=== PATIENT | female | born 1980 | race American Indian/Alaskan Native ===

== ENCOUNTER 2020-04-18 09:50 | Observation (INO) | payer MEDICAID ==
--- NOTE | 2020-04-10 11:15 | History and Physical Report ---
History of Present Illness Date of examination: 04/10/20 History of present illness: 40 yo has menorrhagia, anemia and fibroid uterus. U/S showed two 4+ cm myomas. She had VB most of the summer which even required PRBCs at one point. BC is not helping. Past History Past Medical History: other (anemia) Past Surgical History: other (nephrectomy (right)- she donated it to her ) Social history: no significant social history Medications and Allergies Active Meds: see EMR charting Review of Systems All systems: negative (except HPI) - Vital Signs Vital signs: see EMR charting. - Physical Exam Cardiovascular: Regular rate, No murmurs Lungs: Positive: Clear to auscultation Genitourinary (Female): Positive: normal external genitalia Vagina: Positive: normal moisture Cervix: Negative: lesion, discharge Uterus: Positive: enlarged (bulky but still well under mike umbilicus.) Adnexa: both: normal Results All other labs normal. Assessment and Plan - Patient Problems (1) Menorrhagia Status: Acute (2) Anemia Status: Acute Qualifiers: Iron deficiency anemia type: chronic blood loss Plan to address problem: CBC repeated in the office 04/10 (3) Fibroids Status: Acute Plan to address problem: Tx options d/w pt and she opts to proceed with RAH/ and B/L salpingectomy. PT fully counseled.
--- NOTE | 2020-04-16 14:26 | Anesthesia Consultation ---
Anesthesia Consult and Med Hx Date of service: 04/18/20 - Airway Anesthetic Teeth Evaluation: Good, Partials (upper incisors) ROM Head & Neck: Adequate Mental/Hyoid Distance: Adequate Mallampati Class: Class III Intubation Access Assessment: Possibly Difficult - Pulmonary Exam CTA: Yes - Cardiac Exam Cardiac Exam: RRR - Pre-Operative Health Status ASA Pre-Surgery Classification: ASA1 Proposed Anesthetic Plan: General Nerve Block: TAP - Pulmonary Hx Smoking: No Hx Respiratory Symptoms: No - Cardiovascular System Hx Hypertension: No Hx Heart Attack/AMI: No - Central Nervous System CVA: No - Gastrointestinal Hx Gastroesophageal Reflux Disease: No - Endocrine Hx Renal Disease: No (s/p donor nephrectomy; remaining kidney functioning well per patient) Hx Liver Disease: No Hx Insulin Dependent Diabetes: No Hx Non-Insulin Dependent Diabetes: No Hx Thyroid Disease: No - Hematic Hx Anemia: Yes - Other Systems Hx Obesity: No - Additional Comments Anesthesia Medical History Comments: No hx anesthetic complications.
[2020-04-16 14:45] LABS: Basophils % (Auto) 0.7 % (0.0-1.8); Eosinophils # (Auto) 0.3 K/mm3 (0.0-0.4); Eosinophils % (Auto) 4.3 % (0.0-4.3); Hemoglobin 7.2 gm/dl (10.1-14.3); Lymphocytes # (Auto) 2.4 K/mm3 (1.2-5.4); Lymphocytes % (Auto) 38.6 % (13.4-35.0); Mean Corpuscular HGB Conc 30 % (30-34); Monocytes # (Auto) 0.6 K/mm3 (0.0-0.8); Monocytes % (Auto) 9.2 % (0.0-7.3); Platelet Count 483 K/mm3 (140-440); Red Blood Count 3.68 M/mm3 (3.65-5.03)
[2020-04-16 14:50] LABS: Mean Corpuscular Volume 65 fl (79-97)
[~2020-04-18 09:50] MED LIST: GABAPENTIN 300 MG CAP PO NR; MIDAZOLAM 2 MG/2 ML INJ IV NR; SODIUM CHLORIDE 0.9% 500 ML 500 ML IV ONE; fentaNYL 100 MCG/2 ML INJ IV PRN
[2020-04-18] MEDS: ACETAMINOPHEN 500 MG TAB PO SCH ×2 (10:20→20:37)
[2020-04-18] MEDS ORDERED: BUPIVACAINE-EPINEPHRINE/PF 0.5%-1:200,000 (10 ML) VIAL INFILTRATI ONE (10:34)
[2020-04-18] MEDS ORDERED: dexAMETHasone 4 MG/ML VIAL ONE (10:34)
[2020-04-18] MEDS ORDERED: SODIUM CHLORIDE P/F VIAL 10 ML 30 ML ONE (10:34)
[2020-04-18] MEDS: LACTATED RINGERS 1,000 ML IV SCH ×2 (10:40→18:14)
[2020-04-18] MEDS ORDERED: PHENYLEPHRINE/NS 1,000 MCG/10 ML SYRINGE (OR USE) IV ONE (10:57)
[2020-04-18] MEDS ORDERED: dexAMETHasone 20 MG/5 ML VIAL ONE (10:57)
[2020-04-18] MEDS ORDERED: ONDANSETRON 4 MG/2 ML INJ ONE (10:57)
[2020-04-18] MEDS ORDERED: NEOSTIGMINE 10MG/10 ML INJ MDV ONE (10:57)
[2020-04-18] MEDS ORDERED: LIDOCAINE MPF (2%) 20 MG/1 ML VIAL 5 ML ONE (10:57)
[2020-04-18] MEDS ORDERED: ROCURONIUM 50 MG/5 ML INJ IV ONE (10:57)
[2020-04-18] MEDS ORDERED: SUCCINYLCHOLINE CHLORIDE 200 MG/10 ML INJ MDV ONE (10:57)
[2020-04-18] MEDS ORDERED: GLYCOPYRROLATE 0.4 MG/2 ML INJ ONE (10:57)
[2020-04-18] MEDS ORDERED: propofoL 200 MG/20 ML VIAL IV ONE (10:58)
[2020-04-18] MEDS ORDERED: fentaNYL 100 MCG/2 ML INJ ONE (10:58)
--- NOTE | 2020-04-18 12:34 | Anesthesia Day of Surgery ---
Anesthesia Day of Surgery - Day of Surgery Patient Examined: Yes Patient H&P Reviewed: Yes Patient is NPO: Yes
--- NOTE | 2020-04-18 12:37 | Progress Note ---
Regional Anesthesia Block - Regional Anesthesia Block Start Time: 12:10 Stop Time: 12:25 Performed By:: BETO MORSE Procedure: Avery Tap Block with Ultrasound Pt Id, consent, time out; performed. Pt on monitor, VSS stable, sedation given per pre-op RN. Sterile prep and drape. Left side Landmarks Identified with ultrasound. 3cc 1% lido skin wheel. Needle advance in plane, 15cc .25% bupivacaine with 15 m ns injected intimately with negatives aspiration. Right side Landmarks Identified with ultrasound. 3cc 1% lido skin wheel. Needle advance in plane, 15cc .25% bupivacaine with 15 m ns injected intimately with negatives aspiration Pt tolerated procedure will, VSS stable.
[2020-04-18] MEDS ORDERED: HYDROmorphone 1 MG/1 ML INJ IV PRN (13:35)
[2020-04-18] MEDS ORDERED: HYDROmorphone 1 MG/1 ML INJ ONE ×2 (13:48→14:23)
[2020-04-18] MEDS ORDERED: SODIUM CHLORIDE 0.9% IRRIG SOLN 2000 ML IR ONE (14:25)
[2020-04-18] MEDS ORDERED: SODIUM CHLORIDE 0.9% IRR 1,500 ML BOTTLE IR ONE (14:27)
--- NOTE | 2020-04-18 16:01 | Post Operative Note ---
Date of procedure: 04/18/20 Pre-op diagnosis: Menorrhagia, fibroid uterus, anemia Post-op diagnosis: same Findings: Bulky fibroid uterus noted. Both tubes and ovaries were within normal limits. The rest of the abdominal pelvic survey was also within normal limits. Procedure: Indication: This is a 40-year-old -0-1-3 with a history of menorrhagia, fibroid uterus, anemia. Her preoperative hemoglobin was 7.3 and she received 1 unit of packed red cells in the preop holding area. Procedure: Patient was taken to the operating room and prepped and draped in the usual fashion. Attention was first turned vaginally for placement of the V care cup uterine manipulator. This was done in the usual fashion including anchoring stitches at 12:00 and 6:00 of the cervical stroma with 0 Vicryl. The large Vcare cup was chosen and the manipulator was placed successfully and without difficulty. Attention was now turned abdominally. In the left upper quadrant about 2 fingerbreadths inferior to the costal margin in the midclavicular line, an 8 mm incision was made. The 8 mm trocar was successfully placed and the placement was confirmed with the camera. Attention was now turned to the placement of the 3 robotic trocars. The 2 lower quadrant ones were about 2 cm superior and medial to the ASIS on each side. These were 8 mm ports. They were placed under direct visualization with without difficulty. The 12 mm umbilical trocar site was also placed under direct visualization successfully and without difficulty. At this point the patient was placed in steep Trendelenburg. The robot was docked to the trochars. At this point I broke scrub and proceeded to the da Mehdi console. First the pelvis was assessed and findings noted above. Good ureteral peristalsis was noted on the left both at the beginning of the case and at the end of the case. Patient with a history of a right-sided nephrectomy. Attention was first turned to the left adnexa where the fallopian tube was resected from its attachments using the robotic vessel sealer. This dissection was carried to the round ligament. The ovarian ligament was also clamped cauterized and resected with the vessel sealer. The round ligament was also clamped cauterized and cut with the vessel sealer. Good hemostasis was noted. This was then done in the exact same fashion on the right side with equal success and good hemostasis. At this point attention was turned the bladder fla p which was created using EndoShears. Good hemostasis noted. The anterior colpotomy ring indentation was then identified from the V care cup. Colpotomy incision was made until the green Vcare cup was visualized. This incision was then extended bilaterally. Attention was then turned posteriorly where the posterior colpotomy ring indentation was identified and the colpotomy incision was made. The colpotomy incision posteriorly was then extended bilaterally. The posterior peritoneal flap was created at this point bilaterally. Good hemostasis noted. At this point attention was turned to the the uterine vasculature which was clamped cauterized and cut using the vessel sealer on both sides. After this was completed the colpotomy was completed at the 3:00 and 9:00 positions. At this point the colpotomy was completed 360 degrees. At this point the uterus and tubes were successfully removed vaginally without difficulty. Attention was turned to closure of the vaginal cuff which was done using 0 V-Loc in a running fashion. Vaginal cuff was closed successfully and without difficulty. At this point the pelvis was well irrigated. The bladder was retrofilled with over 100 cc of saline and good integrity was noted. No leaking or hole in the bladder was noted. The Gutiérrez was then allowed to drain again. The abdomen was desufflated and good hemostasis was noted. Abdomen was reinsufflated. Lola was then applied to all the areas of dissection. At this point the robot was undocked from the trochars. I scrubbed back in and first inspected the vaginal cuff both visually and with palpation. Good hemostasis noted and good integrity of the cuff was noted. Laparoscopically good hemostasis still noted throughout. The 12 mm trocar was removed and that site was closed using the Papi Iqbal device and a 0 Vicryl. At this point the abdomen was fully desufflated. The other 3 trochars were removed and those trocar sites were closed using 4-0 Vicryl in a subcuticular fashion as well as the 12 mm site. The procedure was concluded at this point. Patient tolerated the procedure well. All instrument lap counts were correct. Patient taken to the recovery room in stable condition. Anesthesia: GETA Surgeon: ABBY VASQUEZ Event Crew Technician: DANNIE PERDUE JR Estimated blood loss: other (50cc) Pathology: list (Uterus and tubes) Specimen disposition: to lab Condition: stable Disposition: PACU
[2020-04-18] MEDS ORDERED: oxyCODONE /ACETAMINOPHEN 5-325MG TAB PO PRN (16:02)
[2020-04-18] MEDS ORDERED: IBUPROFEN 800 MG TAB PO PRN (17:00)
--- NOTE | 2020-04-18 17:48 | Post Anesthesia Evaluation ---
- Post Anesthesia Evaluation Patient Participated: Yes Airway Patent: Yes Stable Respiratory Function: Yes Nausea/Vomiting: No Temp > 96.8F: Yes Pain Manageable: Yes Adequeate Hydration: Yes Anesthesia Complications: No Other Comments: On arrival to PACU, patient become unresponsive and experienced sudden desaturation to low 90s and became hypertensive and tachycardic. Suspected hypoventilation/obstruction so nasal airway was placed and jaw thrust applied. SpO2 improved within seconds to high-90s and there was evidence fo adequate ventilation. BP and HR normalized within 5 mins. Remained of PACU stay uneventful. Transferred to floor.
[2020-04-18] MEDS: ONDANSETRON 4 MG ODT TAB PO PRN (22:59)
[2020-04-19] MEDS: oxyCODONE /ACETAMINOPHEN 5-325MG TAB PO PRN ×2 (02:53→09:24)
[2020-04-19 06:37] LABS: Hematocrit 26.5 % (30.3-42.9)
[2020-04-19] MEDS: ONDANSETRON 4 MG ODT TAB PO PRN (09:25)
--- NOTE | 2020-04-19 10:34 | Discharge Summary ---
Providers - Providers Date of Admission: 04/18/20 16:02 Date of discharge: 04/19/20 Attending physician: ABBY VASQUEZ Primary care physician: GUMARO ALEXIS MD Hospitalization Reason for admission: other (AUB for hysterectomy) Procedure: other (Robotic assisted laparoscopic hysterectomy, bilateral salpingectomy) Procedure details: 40 yo c/b hx nephrectomy presenting for definative surgical management for has menorrhagia, anemia and fibroid uterus. U/S showed two 4+ cm myomas. S/p uncomplicated robotic assisted laparoscopic hysterectomy, bilateral salpingectomy. Patient meeting postoperative goals on postop day 1 and discharged in good condition. Episiotomy: none Laceration: none Incision: normal Hospital course: 40 yo c/b hx nephrectomy presenting for definative surgical management for has menorrhagia, anemia and fibroid uterus. U/S showed two 4+ cm myomas. S/p uncomplicated robotic assisted laparoscopic hysterectomy, bilateral salpingectomy. Patient meeting postoperative goals on postop day 1 and dischar ged in good condition. Condition at discharge: Good Disposition: [id number] TO HOME OR SELFCARE - Discharge Diagnoses (1) Anemia Status: Acute Qualifiers: Iron deficiency anemia type: chronic blood loss (2) Fibroids Status: Acute (3) Menorrhagia Status: Acute Plan - Discharge Medications Prescriptions: Acetaminophen [Acetaminophen TAB] 1,000 mg PO Q6HR PRN #60 tablet PRN Reason: Pain, Mild (1-3) oxyCODONE /ACETAMINOPHEN [Percocet 5/325 mg] 1 tab PO Q4H PRN #30 tablet PRN Reason: Pain, Moderate (4-6) Acetaminophen/Codeine [Tylenol /Codeine # 3 tab] 1 tab PO Q4HR PRN #30 tablet PRN Reason: Pain Ondansetron [Zofran ODT TAB] 4 mg PO Q8H PRN #60 tab.rapdis PRN Reason: Nausea And Vomiting - Provider Discharge Summary Additional instructions: [] Smoking cessation referral if applicable(refer to patient education folder for contact #) [] Refer to [facility] Booklet Call your doctor immediately for: * Fever > 100.5 * Heavy vaginal bleeding ( >1 pad per hour) * Severe persistent headache * Shortness of breath * Reddened, hot, painful area to leg or breast * Drainage or odor from incision. * Keep incision clean and dry at all times and follow doctor's instructions regarding bathing/showering - Follow up plan Follow up: ABBY VASQUEZ MD [Staff Physician] - 14 Days
[2020-04-19 13:15] VITALS: BP 122/68
== END 2020-04-19 13:17 | disposition home or self-care (01) ==
LOC: OR 09:50 → OB 16:02
PROVIDERS: ADMIT Obstetrics & Gynecology; ATTEND Obstetrics & Gynecology
DX: N92.0 Excessive and frequent menstruation with regular cycle (principal); D25.9 Leiomyoma of uterus, unspecified; D64.9 Anemia, unspecified; Z90.710 Acquired absence of both cervix and uterus
CPT/HCPCS: 36415; 58571; 64450; 84703; 85014; 85018; 85025; 86850; 86900; 86901; 86920; 88307; 96360; 96361; A4217; C1765; G0378; J0330; J1100; J1170; J2250; J2370; J2405; J2704; J2710; J3010; J7120; S2900; 88309; P9016; Q0162

== ENCOUNTER 2020-06-19 13:19 | Emergency (ER) | payer MEDICAID ==
--- NOTE | 2020-06-19 13:30 | Event Note ---
ED Screening Note Date of service: 06/19/20 Time: 13:30 ED Screening Note: Mid epigastric pain after she fell in a bed hit her abdomen 2 days ago. Recent hysterectomy and is complaining of some vaginal bleeding. This initial assessment/diagnostic orders/clinical plan/treatment(s) is/are subject to change based on patients health status, clinical progression and re- assessment by fellow clinical providers in the ED. Further treatment and workup at subsequent clinical providers discretion. Patient/guardian urged not to elope from the ED as their condition may be serious if not clinically assessed and managed. Initial orders include: CBC, CMP, lipase, urinalysis, urine test
[2020-06-19 13:34] VITALS: BP 121/77
[2020-06-19 14:37] LABS: Mean Corpuscular HGB Conc 30 % (30-34); Platelet Count 394 K/mm3 (140-440); Red Blood Count 4.52 M/mm3 (3.65-5.03)
[2020-06-19 14:38] LABS: Hematocrit 31.1 % (30.3-42.9); Hemoglobin 9.3 gm/dl (10.1-14.3); Mean Corpuscular Volume 69 fl (79-97); Red Cell Distribution Width 21.9 % (13.2-15.2)
[2020-06-19 14:48] LABS: Alanine Aminotransferase 10 units/L (7-56); Albumin 4.1 g/dL (3.9-5); Blood Urea Nitrogen 6 mg/dL (7-17); Calcium 9.6 mg/dL (8.4-10.2); Hemolysis Index 0
[2020-06-19 14:50] LABS: BUN/Creatinine Ratio 9; Bilirubin,Direct < 0.2 mg/dL (0-0.2)
[2020-06-19] MEDS ORDERED: SODIUM CHLORIDE 0.9% 1000 ML 1,000 ML IV ONE (15:32)
[2020-06-19] MEDS ORDERED: HYDROmorphone 1 MG/1 ML INJ IV ONE (15:32)
[2020-06-19] MEDS ORDERED: ONDANSETRON 4 MG/2 ML INJ IV ONE (15:32)
--- NOTE | 2020-06-19 15:33 | Emergency Department Report ---
ED Abdominal Pain HPI - General Chief Complaint: Abdominal Pain Stated Complaint: ABD PAIN PUI?: No Time Seen by Provider: 06/19/20 15:29 Source: patient Mode of arrival: Ambulatory Limitations: No Limitations - History of Present Illness Initial Comments: Patient is a 40-year-old female that presents to the emergency room with complaints of lower abdominal pain. Patient states the lower abdominal pain is in the suprapubic region. Patient states 2 months ago she had a total hysterectomy and 3 days ago she fell against a washing machine causing her to have severe abdominal pain. Patient states the pain is worsening. Patient states the pain is a 10 out of 10. Fall against the wash machine she also had a bloody discharge. Patient states she saw her DELIVERY AND MAIL SORTER that did the hysterectomy yesterday and had a pelvic exam done and it was normal. Patient states she did not have an ultrasound. Patient states that her DELIVERY AND MAIL SORTER stated that she popped a stitch. Patient DELIVERY AND MAIL SORTER is Dr. Pal. Patient denies chest pain. Patient denies nausea vomiting. Patient denies fever or chills. Patient denies dysuria. Patient denies recent travel. Patient denies recent international travel. Patient denies exposure to the novel coronavirus. Patient denies sick contacts. Patient denies fever and chills. Patient denies cough. Patient denies diarrhea. Patient denies coming in contact with anybody with symptoms of the novel coronavirus. MD Complaint: abdominal pain -: Sudden Location: suprapubic Radiation: none Migration to: no migration Severity: severe Severity scale (0 -10): 10 Quality: stabbing Consistency: constant Improves With: rest Worsens With: movement Associated Symptoms: denies other symptoms. denies: nausea, vomiting, diarrhea, fever, constipation, dysuria, hematemesis, hematochezia, melena, hematuria, syncope Treatments Prior to Arrival: other (Tylenol) - Related Data LMP (females 10-50): 2 months Previous Rx's Medication Instructions Recorded Last Taken Type Acetaminophen [Acetaminophen TAB] 1,000 mg PO Q6HR PRN #60 tablet 04/19/20 Unknown Rx Acetaminophen/Codeine [Tylenol 1 tab PO Q4HR PRN #30 tablet 04/19/20 Unknown Rx /Codeine # 3 tab] Ondansetron [Zofran ODT TAB] 4 mg PO Q8H PRN #60 tab.rapdis 04/19/20 Unknown Rx Ibuprofen [Motrin 800 MG tab] 800 mg PO Q8HR PRN #30 tablet 06/19/20 Unknown Rx Iron Fum,Ps/Folic/Bcomp,C No.9 1 each PO DAILY 30 Days #30 capsule 06/19/20 Unknown Rx [Integra Plus Capsule] Sulfamethoxazole/Trimethoprim 1 each PO BID 7 Days #14 tablet 06/19/20 Unknown Rx [Bactrim DS TAB] oxyCODONE /ACETAMINOPHEN [Percocet 1 tab PO Q4H PRN #10 tablet 06/19/20 Unknown Rx 5/325 mg] Allergies Allergy/AdvReac Type Severity Reaction Status Date / Time No Known Allergies Allergy Verified 06/19/20 13:27 ED Review of Systems ROS: Stated complaint: ABD PAIN Other details as noted in HPI Constitutional: denies: chills, fever Eyes: denies: eye pain, eye discharge, vision change ENT: denies: ear pain, throat pain Respiratory: denies: cough, shortness of breath, wheezing Cardiovascular: denies: chest pain, palpitations Endocrine: no symptoms reported Gastrointestinal: abdominal pain. denies: nausea, diarrhea Genitourinary: denies: urgency, dysuria, discharge Musculoskeletal: denies: back pain, joint swelling, arthralgia Skin: denies: rash, lesions Neurological: denies: headache, weakness, paresthesias Psychiatric: denies: anxiety, depression Hematological/Lymphatic: denies: easy bleeding, easy bruising ED Past Medical Hx - Past Medical History Previous Medical History?: Yes Hx Hypertension: No Hx Heart Attack/AMI: No Hx Liver Disease: No Hx Renal Disease: No (s/p donor nephrectomy; remaining kidney functioning well per patient) Hx Headaches / Migraines: Yes (Migraines) - Surgical History Past Surgical History?: Yes Additional Surgical History: Hysterectomy - Family History Family history: no significant - Social History Smoking Status: Never Smoker Substance Use Type: None - Medications Home Medications: Home Medications Medication Instructions Recorded Confirmed Last Taken Type Acetaminophen [Acetaminophen TAB] 1,000 mg PO Q6HR PRN #60 tablet 04/19/20 Unknown Rx Acetaminophen/Codeine [Tylenol 1 tab PO Q4HR PRN #30 tablet 04/19/20 Unknown Rx /Codeine # 3 tab] Ondansetron [Zofran ODT TAB] 4 mg PO Q8H PRN #60 tab.rapdis 04/19/20 Unknown Rx Ibuprofen [Motrin 800 MG tab] 800 mg PO Q8HR PRN #30 tablet 06/19/20 Unknown Rx Iron Fum,Ps/Folic/Bcomp,C No.9 1 each PO DAILY 30 Days #30 capsule 06/19/20 Unknown Rx [Integra Plus Capsule] Sulfamethoxazole/Trimethoprim 1 each PO BID 7 Days #14 tablet 06/19/20 Unknown Rx [Bactrim DS TAB] oxyCODONE /ACETAMINOPHEN [Percocet 1 tab PO Q4H PRN #10 tablet 06/19/20 Unknown Rx 5/325 mg] ED Physical Exam - General Limitations: No Limitations General appearance: alert, in no apparent distress - Head Head exam: Present: atraumatic, normocephalic - Eye Eye exam: Present: normal appearance - ENT ENT exam: Present: mucous membranes moist - Neck Neck exam: Present: normal inspection - Respiratory Respiratory exam: Present: normal lung sounds bilaterally. Absent: respiratory distress - Cardiovascular Cardiovascular Exam: Present: regular rate, normal rhythm. Absent: systolic murmur, diastolic murmur, rubs, gallop - GI/Abdominal GI/Abdominal exam: Present: soft, tenderness (Severe suprapubic tenderness), normal bowel sounds - Extremities Exam Extremities exam: Present: normal inspection - Back Exam Back exam: Present: normal inspection - Neurological Exam Neurological exam: Present: alert, oriented X3 - Psychiatric Psychiatric exam: Present: normal affect, normal mood - Skin Skin exam: Present: warm, dry, intact, normal color. Absent: rash ED Course Vital Signs 06/19/20 13:33 Temperature 99.1 F Pulse Rate 112 H Respiratory 18 Rate Blood Pressure 121/77 O2 Sat by Pulse 99 Oximetry - Reevaluation(s) Reevaluation #1: Patient had a CT scan which was negative except for possible ovarian cyst. Patient states her pain is better. Patient's will receive Toradol. 06/19/20 17:32 Reevaluation #2: Patient states her pain is better. 06/19/20 19:30 Reevaluation #3: Patient tolerating p.o. intake. Patient states her pain is much better. I discussed all results and clinical findings with patient. I discussed plan of care with patient. Patient agrees with plan of care. Patient is stable for d ischarge. Patient will be discharged home. Patient given discharge instructions. Patient voiced understanding of discharge instructions. 06/19/20 19:57 - Consultations Consultation #1: I discussed the patient case with Dr. Pal. Patient agrees the patient stable to home. Patient states he will see the patient in 2 to 3 days in his office. 06/19/20 19:56 ED Medical Decision Making - Lab Data Result diagrams: 06/19/20 13:44 06/19/20 13:44 - Radiology Data Radiology results: report reviewed CT abdomen pelvis w con INDICATION: Abdominal Pain. TECHNIQUE: All CT scans at this location are performed using the following dose modulation technique: Automated exposure control. CONTRAST: None. COMPARISON: None available. CT ABDOMEN: Evaluation of the parenchymal organs demonstrates previous right nephrectomy with compensatory hypertrophy of the left kidney. A subcentimeter hepatic cyst is present within the right lobe. The remaining parenchymal organs are unremarkable Negative for abdominal mass, fluid collection or inflammation. The bowel is not dilated or thickened. CT PELVIS: Status post previous hysterectomy. The right ovary remains and contains a small cyst. There is mild adjacent fluid/inflammation. Moderate colonic stool contains residual barium. The appendix is normal. IMPRESSION: 1. Possible ruptured right ovarian cyst. 2. Moderate colonic stool. Ultrasound, pelvic (nonobstetric), real-time with image documentation; transabdominal and transvaginal imaging with Doppler was performed. FINDINGS: The uterus has been removed. The right and left ovaries are of symmetric size and echogenicity. There are no ovarian or adnexal masses. Doppler imaging demonstrates normal vascular flow to both ovaries. There is no significant quantity of free fluid dependently within the pelvis. IMPRESSION: Unremarkable routine ultrasound. - Medical Decision Making Patient is a 40-year-old female that presents emergency room with complaints of lower abdominal pain. Patient has significant pain. Patient given Dilaudid and fluids. Patient stated she fell and hit her abdomen on a wash machine and had a total hysterectomy 2 months ago. Patient saw her CORE DROPPER prior to coming to the emergency room. Patient had a CT scan of the abdomen due to the amount of pain and it was negative for acute pain except for a possible ruptured ovarian cyst and colonic stool. Patient then had a ultrasound transvaginal to rule out a ovarian torsion the ultrasound was negative for acute findings and no ovarian cyst noted. Patient labs were essentially unremarkable except for anemia and a UTI. Patient is stable for discharge. Patient will be discharged home.... - Differential Diagnosis Ovarian cyst, abdominal pain, surgical complication, UTI, Critical care attestation.: If time is entered above; I have spent that time in minutes in the direct care of this critically ill patient, excluding procedure time. ED Disposition Clinical Impression: Abdominal hematoma Abdominal pain Qualifiers: Abdominal location: unspecified location Qualified Code(s): R10.9 - Unspecified abdominal pain Ovarian cyst Qualifiers: Laterality: right Qualified Code(s): N83.201 - Unspecified ovarian cyst, right side UTI (urinary tract infection) Qualifiers: Urinary tract infection type: acute cystitis Hematuria presence: with hematuria Qualified Code(s): N30.01 - Acute cystitis with hematuria Anemia Qualifiers: Anemia type: unspecified type Qualified Code(s): D64.9 - Anemia, unspecified Fall Qualifiers: Encounter type: initial encounter Qualified Code(s): W19.XXXA - Unspecified fall, initial encounter Disposition: TO HOME OR SELFCARE Is pt being admited?: No Does the pt Need Aspirin: No Condition: Stable Instructions: Abdominal Pain (ED), Ovarian Cyst, [id number], Abdominal Pain, Adult, [id number], Urinary Tract Infection, Adult, [id number] Additional Instructions: Patient to follow-up with primary care in 2 to 3 days. Patient to follow-up with DELIVERY AND MAIL SORTER in 2 to 3 days. Patient to rest. Patient to increase water. Patient to avoid strenuous exercise or heavy lifting until cleared by DELIVERY AND MAIL SORTER. Patient to take Tylenol as needed for pain. Patient to take meds as directed. Patient to return to the ER if condition worsens, changes or new symptoms arise. Prescriptions: Sulfamethoxazole/Trimethoprim [Bactrim DS TAB] 1 each PO BID 7 Days #14 tablet Iron Fum,Ps/Folic/Bcomp,C No.9 [Integra Plus Capsule] 1 each PO DAILY 30 Days #30 capsule Ibuprofen [Motrin 800 MG tab] 800 mg PO Q8HR PRN #30 tablet PRN Reason: Pain, Mild (1-3) oxyCODONE /ACETAMINOPHEN [Percocet 5/325 mg] 1 tab PO Q4H PRN #10 tablet PRN Reason: PAIN Referrals: PRIMARY CARE, [Primary Care Provider] - 2-3 Days Time of Disposition: 19:36
[2020-06-19 15:53] LABS: Anisocytosis 1+; Hypochromasia 2+; Total Cells Counted 100
[2020-06-19 15:54] LABS: Ovalocytes Rare; Tear Drop Cells Rare
[2020-06-19 15:55] LABS: Large Platelets Rare; Platelet Estimate Consistent w Auto
--- NOTE | 2020-06-19 17:02 | Cat Scan Report ---
CT abdomen pelvis w con INDICATION: Abdominal Pain. TECHNIQUE: All CT scans at this location are performed using the following dose modulation technique: Automated exposure control. CONTRAST: None. COMPARISON: None available. CT ABDOMEN: Evaluation of the parenchymal organs demonstrates previous right nephrectomy with compens atory hypertrophy of the left kidney. A subcentimeter hepatic cyst is present within the right lobe. The remaining parenchymal organs are unremarkable Negative for abdominal mass, fluid collection or inflammation. The bowel is not dilated or thickened. CT PELVIS: Status post previous hysterectomy. The right ovary remains and contains a small cyst. Ther e is mild adjacent fluid/inflammation. Moderate colonic stool contains residual barium. The appendix is normal. IMPRESSION: 1. Possible ruptured right ovarian cyst. 2. Moderate colonic stool. Signer Name: Antonio Moya MD Signed: 06/19/2020 4:58 PM Workstation Name: [id number]
[2020-06-19] MEDS ORDERED: KETOROLAC 30 MG/1 ML INJ IV ONE ×2 (17:20→19:33)
[2020-06-19 17:38] LABS: Bilirubin,Urine NEG (Negative); Blood,Urine SM (Negative); Color,Urine Yellow (Yellow); Protein,Urine <15 mg/dL mg/dL (Negative); Urobilinogen,Urine < 2.0 mg/dL (<2.0)
--- NOTE | 2020-06-19 19:04 | Ultrasound Report ---
CLINICAL DATA: abd pain,. ovary cyst TECHNICAL DATA: Ultrasound, pelvic (nonobstetric), real-time with image documentation; transabdominal and transvagina l imaging with Doppler was performed. FINDINGS: The uterus has been removed. The right and left ovaries are of symmetric size and echogenicity. There are no ovarian or adnexal ma sses. Doppler imaging demonstrates normal vascular flow to both ovaries. There is no significant quantity of free fluid dependently within the pelvis. IMPRESSION: Unremarkable routine ultrasound. GUIDELINES FOR IMAGING OF OVARIAN--ADNEXAL CYST: WOMEN OF REPRODUCTIVE AGE: 1. Cysts <=3 cm: Normal physiologic findings; at the discretion of the interpreting physician whether or not to describe them in the imaging report; do not need follow-up. 2. Cysts >3 and <=5 cm: Should be described in the imaging report with a statement that they are almo st certainly benign; do not need follow-up. 3. Cysts >5 and <=7 cm: Should be described in the imaging report with a statement that they are almo st certainly benign; yearly follow-up with US recommended. 4. Cysts >7 cm: Since these may be difficult to assess completely with US, further imaging with magne tic resonance (MR) or surgical evaluation should be considered. POSTMENOPAUSAL WOMEN: 1. Cysts <=1 cm: Are clinically inconsequential; at the discretion of the interpreting physician whet her or not to describe them in the imaging report; do not need follow-up. 2. Cysts >1 and <=7 cm: Should be described in the imaging report with statement that they are almost certainly benign; yearly follow-up, at least initially, with US recommended. Some practices may opt to increase the lower size threshold for follow-up from 1 cm to as high as 3 cm. One may opt to milo nue follow-up annually or to decrease the frequency of follow-up once stability or decrease in size h as been confirmed. Cysts in the larger end of this range should still generally be followed on a regu lar basis. 3. Cysts >7 cm: Since these may be difficult to assess completely with US, further imaging with MR or surgical evaluation should be considered. Signer Name: William Chen MD Signed: 06/19/2020 6:59 PM Workstation Name: [id number]
== END 2020-06-19 20:12 | disposition home or self-care (01) ==
LOC: ED 13:19
DX: S30.1XXA Contusion of abdominal wall, initial encounter (principal); D64.9 Anemia, unspecified; N39.0 Urinary tract infection, site not specified; N83.201 Unspecified ovarian cyst, right side; R10.30 Lower abdominal pain, unspecified; G43.909 Migraine, unspecified, not intractable, without status migrainosus; Z79.899 Other long term (current) drug therapy; Z90.710 Acquired absence of both cervix and uterus; W18.30XA Fall on same level, unspecified, initial encounter; Y93.89 Activity, other specified; Y92.89 Other specified places as the place of occurrence of the external cause; Y99.8 Other external cause status
CPT/HCPCS: 36415; 74177; 76830; 80048; 80076; 81001; 83690; 85007; 85025; 96361; 96374; 96375; 99284; J1170; J1885; J2405; J7030; Q9967